=== PATIENT | male | born 1965 ===

== ENCOUNTER 2021-09-12 13:35 | Outpatient (CLI) | payer OTHER | END 2021-09-12 13:40 | disposition home or self-care (01) | LOC: LAB 13:35 | PROVIDERS: ATTEND Internal Medicine | DX: D69.49 Other primary thrombocytopenia (principal) ==

== ENCOUNTER 2021-09-18 06:35 | Day surgery (SDC) | payer OTHER ==
[2021-09-18] MEDS ORDERED: POLY119PG PO (14:49)
[2021-09-18] MEDS ORDERED: NEURONTIN600 M1 PO (14:49)
[2021-09-18] MEDS ORDERED: PERCOCET 5-3251 EACH PO (14:49)
== END 2021-09-18 18:15 | disposition home or self-care (01) ==
LOC: CIR.AMB 06:35
PROVIDERS: ATTEND Surgery
DX: K43.0 Incisional hernia with obstruction, without gangrene (principal); Z20.822 Contact with and (suspected) exposure to COVID-19